=== PATIENT | female | born 1985 | race Caucasian/White ===

== ENCOUNTER 2020-06-04 16:24 | Inpatient (IN) | payer BC ==
[~2020-06-04] VITALS: Ht 170.2 cm; Wt 81.8 kg
[~2020-06-04 16:24] MED LIST: DEPO PROVER150 MG/ML IM; PERCOCET 5/321 UDTAB PO; PRENATAL VITAMI1 TA5 PO
[2020-06-05] VITALS (49 sets, daily range): BP systolic 74–169; BP diastolic 35–80; PULSE 63–105; TEMP 97.7–98.4
[2020-06-05] MEDS ORDERED: PRENATAL PLUS PO (08:32)
[2020-06-05] MEDS ORDERED: CALCIUM ANTACI500 MG PO (08:33)
[2020-06-05 08:51] LABS: BASO % 0.3 % (0.0-2.0); EOS # 0.1 (0.0-0.7); EOS % 0.7 % (0-4.0); GRAN # 7.6 (1.4-6.5); GRAN % 70.7 % (42.2-75.2); HEMOGLOBIN 12.7 g/dl (12.5-16.0); LYMPH % 18.7 % (20.0-51.0); MEAN CELL VOLUME 92 fl (80.0-100.0); MEAN CORPUSCULAR HEMOGLOBIN 31 pg (27.0-31.0); MEAN CORPUSCULAR HGB CONC 33 g/dl (33.0-37.0); MEAN PLATELET VOLUME 9.6 fl (7.4-10.4); MONO # 0.9 (0.1-0.6); MONO % 8.7 % (1.7-9.3); PLATELET COUNT 268 K/mm3 (130-400); RED BLOOD COUNT 4.14 M/mm3 (4.10-5.30); REDCELL DISTRIBUTION WIDTH-CV 13.5 % (11.5-14.5)
--- NOTE | 2020-06-05 09:08 | NUR ---
3438 PATIENT HERE FOR INDUCTION. EFM ON FHT 130 BABY VERY ACTIVE. CONTRACTIONS 3-5 MIN BUT PALPATE MODERATE. PATIENT STATES FEEL LIKE CRMAPS. IV STARTED IN LEFT WRIST AND IVF STARTED. ASSESSMENT COMPLETED.
--- NOTE | 2020-06-05 09:50 | NUR ---
0930 BABY VERY ACTIVE AND UNABLE TO OBTAIN CONSISTANT HEART TONES. SCALP ELECTRODE ATTEMPTED BUT STOPPED DUE TO UNKNOWN PRESENTING PART. PITOCIN OFF AND DR. CASANOVA CALLED AND UPDATED. ORDERS WILL BE OVER TO ULTRASOUND TO COMFIRM PRESENTING PART SOON.
--- NOTE | 2020-06-05 10:03 | NUR ---
PITOCIN OFF WAITING FOR DR TO CHECK PLACEMENT
--- NOTE | 2020-06-05 11:32 | NUR ---
0740 patient decided to not get a covid screen done
--- NOTE | 2020-06-05 14:43 | NUR ---
1435 DR CASANOVA AT BEDSIDE. SVE /-3 WITH BOW PRESENTATION NOTED. PATIENT TO KNEE CHEST POSITION PER DR CAAL
--- NOTE | 2020-06-05 16:27 | NUR ---
1610 PATIENT READY FOR EPIDURAL TO SEE IF THAT WILL HELP CHANGE BABY POSITION. SITS UP ON EDGE OF BED. DR CASANOVA HERE AND Santos [employer]INE[employer] AT BEDSIDE FOR PLACEMENT. SEE Santos [employer]BALLO NOTES FOR [facility].
--- NOTE | 2020-06-05 17:21 | NUR ---
1715 MOURA PLACED AND SVE FACE PRESENTATION FELT. DR LEHMAN CALLED TO COME FOR EVALUATION NOW
--- NOTE | 2020-06-05 17:37 | NUR ---
6065 DR CASANOVA AT [facility]. SVE FACE PRESENTATION NOTED. TALK TO PATIENT FOR A C SECTION
--- NOTE | 2020-06-05 17:48 | NUR ---
1740 to or for cesction at this time
--- NOTE | 2020-06-05 18:58 | NUR ---
1858- BLOOD PRESSURE STILL LOW, PT ALERT AND NOT NAUSEATED. EPHEDRINE GIVEN PER IV ORDERED AFTER EXPLAINING SIDE EFFECTS TO PT. 190- MILD EFFECT OF EPHEDRINE. SECOND DOSE GIVEN DUE TO BLOOD PRESSURE STILL BEING LOW. PT STILL ALERT AND DENIES NAUSEA. 191- BLOOD PRESSURE IMPROVING. WILL WAIT FOR 1 MORE BEFORE LEAVING PACU.
[2020-06-06 00:30] VITALS: BP 98/57; PULSE 69; TEMP 97.6
[2020-06-06 04:40] VITALS: BP 98/52; PULSE 62; TEMP 97.3
--- NOTE | 2020-06-06 05:45 | NUR ---
0545- PT ASSISTED TO BATHROOM. MOURA CATHETER REMOVED AFTER DEFLATING BALLOON. PT INSTRUCTED IN PERICARE AND [place]. CLEAN GOWN, PAD, AND PANTIES PROVIDED. PT ASSISTED BACK TO BED AND QUESTIONS ANSWERED. NO FURTHER NEEDS AT THIS TIME.
[2020-06-06 08:15] VITALS: BP 104/57; PULSE 74; TEMP 97.5
[2020-06-06 11:10] VITALS: BP 90/55; PULSE 69; TEMP 97.9
[2020-06-06 16:15] VITALS: BP 97/53; PULSE 73; TEMP 98.1
[2020-06-06 20:00] VITALS: BP 104/57; PULSE 61; TEMP 98.2
[2020-06-07 02:00] VITALS: BP 110/61; PULSE 61; TEMP 98.2
[2020-06-07 06:45] VITALS: BP 101/65; PULSE 66; TEMP 98.3
[2020-06-07] MEDS ORDERED: IBU800 M1 PO (12:06)
[2020-06-07] MEDS ORDERED: PERCOCET 325 MG1 TA2 PO (12:07)
[2020-06-07 16:10] VITALS: BP 97/57; PULSE 72; TEMP 98.1
[2020-06-07 19:30] VITALS: BP 111/66; PULSE 72; TEMP 98.5
[2020-06-08 08:00] VITALS: BP 112/66; PULSE 59; TEMP 97.9
== END 2020-06-08 13:30 | disposition home or self-care (01) | DRG 788 ==
LOC: LDR 06-05 07:32 → OB 06-05 16:22
PROVIDERS: ADMIT Student in an Organized Health Care Education/Training Program
PROC: 10D00Z1 Extraction of Products of Conception, Low, Open Approach (ICD-10-PCS; principal; 2020-06-05)
DX: O76 Abnormality in fetal heart rate and rhythm complicating labor and delivery (principal); Z3A.39 39 weeks gestation of pregnancy; Z37.0 Single live birth
CPT/HCPCS: J0690; J1885; J2370; J2400; J2405; J2590; J2795; J3010; J7120

== ENCOUNTER → 2021-06-01 | Outpatient (CLI) | payer BC ==
[~2021-06-01] MED LIST changes: +CALCIUM ANTACI500 MG PO; +IBU800 M1 PO; +PERCOCET 325 MG1 TA2 PO; +PRENATAL PLUS PO
== END ==
LOC: MC.RAD 14:51
DX: N61.0 Mastitis without abscess (principal); N60.11 Diffuse cystic mastopathy of right breast